=== PATIENT | male | born 1975 | race Caucasian/White ===

== ENCOUNTER 2017-03-15 07:42 | Day surgery (SDC) | payer OTHER ==
[~2017-03-15 07:42] MED LIST: Buffered Lidocaine 0.9% SYRIN* 5 ML/SYR SYRINGE INTRADERM ONE; Famotidine IV* 10 MG/ML 2 ML (20 mg) IV ONE; Metoclopramide TAB* 10 MG PO ONE
[2017-03-15] MEDS ORDERED: Famotidine IV* 10 MG/ML 2 ML (20 mg) ONE (07:57)
[2017-03-15] MEDS ORDERED: Ketorolac INJ* 30 MG/ML 1 ML VIAL ONE (07:57)
[2017-03-15] MEDS ORDERED: Metoclopramide TAB* 10 MG ONE (07:57)
[2017-03-15] MEDS ORDERED: ceFAZolin 2 GM PREMIX (*) 2 GM/50 ML BAG IVPB ONE (07:58)
[2017-03-15] MEDS ORDERED: Buffered Lidocaine 0.9% SYRIN* 5 ML/SYR SYRINGE ONE (07:58)
[2017-03-15] MEDS ORDERED: Propofol* 10 MG/ML 20 ML BTL IV PUSH ONE ×2 (08:34→10:08)
[2017-03-15] MEDS ORDERED: Midazolam* 1 MG/ML 10 ML VIAL (10 MG) ONE (08:34)
[2017-03-15] MEDS ORDERED: KETAMINE HCL* 50 MG/ML 10 ML VIAL ONE (08:34)
[2017-03-15] MEDS ORDERED: Dexamethasone IV* 4 MG/ML 1 ML (4 MG) ONE (08:34)
[2017-03-15] MEDS ORDERED: Lidocaine 2% PF * 5 ML VIAL ONE (08:34)
[2017-03-15] MEDS ORDERED: Ondansetron INJ* 2 MG/ML VIAL ONE (08:34)
[2017-03-15] MEDS ORDERED: fentaNYL* 50 MCG/ML 2 ML VIAL (100 MCG VIAL) ONE ×2 (08:34→10:10)
[2017-03-15] MEDS ORDERED: Bupivacaine 0.5% SDV PF* 10-30ML VIAL ONE (09:41)
[2017-03-15] MEDS ORDERED: Lidocaine 1% MPF wEPI 200,000* 30 ML SDV ONE (09:41)
[2017-03-15] MEDS ORDERED: Ondansetron INJ* 2 MG/ML VIAL IV PRN (10:23)
[2017-03-15] MEDS ORDERED: Naloxone* 0.4 MG/ML 1 ML VIAL IV PRN (10:23)
[2017-03-15] MEDS ORDERED: fentaNYL* 50 MCG/ML 2 ML VIAL (100 MCG VIAL) IV PRN (10:23)
[2017-03-15] MEDS ORDERED: oxyCODONE/Acetamin 5/325 MG* TAB PO PRN (10:54)
[2017-03-15 11:50] VITALS: BP 124/81
--- NOTE | 2017-03-16 00:08 | OP ---
CC: [facility] * DATE OF OPERATION: 03/15/17 - SDS DATE OF : 79 SURGEON: Adi Oneal MD. [employer] OPERATOR: BERTA Chiang ANESTHESIOLOGIST: Dr. Michel. ANESTHESIA: LMAC anesthesia. PRE-OP DIAGNOSIS: Left inguinal hernia. POST-OP DIAGNOSIS: Left inguinal hernia. OPERATIVE PROCEDURE: Open left inguinal hernia repair with mesh. DESCRIPTION OF PROCEDURE: The patient was supine on the operative table. After adequate intravenous sedation, compression stockings, Sherice Hugger warmer, and intravenous antibiotics, the abdomen and groin were prepped with antiseptic and draped in a sterile fashion. Local infiltrative anesthesia was administered. Left inguinal incision was created. Dissection carried down through Efrain's to the external oblique, which was opened in the direction of its fibers. Cord structures were encircled with a [place] drain, tented upward. There was a large indirect space hernia. This was dissected free and reduced in the usual fashion. A cone mesh plug was placed into the internal ring, sutured to the transverse abdominis and to the inguinal ligament using 2- 0 Vicryl. A second piece of mesh was placed over the inguinal floor, sutured at the tubercle, tails were split, brought around the cord structures and tacked down laterally. External oblique was closed over top with 2-0 Vicryl followed by 3-0 Vicryl for Efrain's and 4-0 Surgipro for the skin. He tolerated the procedure well. He was awakened and brought to Recovery in good condition. No complications. No drains. No pathologic specimens. Sponge and instrument counts were correct. Estimated blood loss is 10 mL. [id number]/[facility] #: [id number] [facility]
== END 2017-03-15 12:29 | disposition home or self-care (01) ==
LOC: OR 07:42
PROVIDERS: ATTEND Surgery
DX: K40.90 Unilateral inguinal hernia, without obstruction or gangrene, not specified as recurrent (principal); I10 Essential (primary) hypertension; F17.210 Nicotine dependence, cigarettes, uncomplicated
CPT/HCPCS: A9270-GY; C1781; J0690; J1100; J1885; J2001; J2250; J2405; J2704; J3010